=== PATIENT | female | born 1980 | race Hispanic/Latino ===

== ENCOUNTER 2022-04-28 08:06 | Emergency (ER) | payer MEDICAID, SELFPAY ==
--- NOTE | ~2022-04-28 | XR_ITS ---
EXAMINATION: XR abdomen/kub 1V DATE: 04/28/2022 08:41 INDICATION: Abdominal pain TECHNIQUE: A supine view of the abdomen was obtained. COMPARISON: None. FINDINGS: Small amount of stool scattered throughout the colon primarily in the cecum. No dilated loops of gas- filled bowel to suggest obstruction. A few small round likely phleboliths in the pelvis and centered likely atherosclerotic calcification in the left hemipelvis. Bones are unremarkable. IMPRESSION: 1. Normal bowel gas pattern. Reviewed, dictated and finalized at location A.
--- NOTE | 2022-04-28 08:16 | ED.ABDPAIN ---
HPI - Abdominal Pain General Chief Complaint: Abdominal Pain Stated Complaint: Abdominal Pain Time Seen by Provider: 04/28/22 08:20 History of Present Illness HPI narrative: Sultana Frias is a 41 yo female with PMH of HTN who comes to [facility] with complaints of abdominal pain that been going on for a number of days, yesterday evening it was 9 out of 10 today it is 3 out of 10 but still present. She describes the pain as being in her epigastric area that radiates to the back, she states that she has not been having regular bowel movements because she is holding when she is feeding baby. Her preliminary UA that was done is totally negative. When asked if she is eating she said now but- no nausea vomiting or diarrhea; denies vaginal discharge Related Data Allergies Allergy/AdvReac Type Severity Reaction Status Date / Time amoxicillin Allergy Intermediate Other Verified 04/28/22 10:23 clavulanic acid Allergy Intermediate Other Verified 04/28/22 10:23 pseudoephedrine Allergy Mild HIVES Verified 04/28/22 10:23 Fish Containing Products Allergy Swelling Verified 04/28/22 10:23 of Lip/Tongue/Throat Review of Systems Review of Systems: CONSTITUTIONAL: Denies fever, chills, sweats. EYES: Denies visual changes, redness, discharge. ENT: Denies rhinorrhea, congestion, sore throat, otalgia. CARDIOVASCULAR: Denies chest pain, palpitations, edema. RESPIRATORY: Denies dyspnea, wheezing, cough GASTROINTESTINAL: Has abdominal pain, nausea, vomiting, diarrhea. GENITOURINARY: Denies dysuria, hematuria, abnormal discharge SKIN: Denies rash or itching. NEUROLOGIC: Denies numbness, or focal weakness. PSYCHIATRIC: Denies anxiety or depression. PMFSH Past Medical History Medical History HTN (hypertension) Vaginal delivery Social History Social History Smoking status: Never smoker Alcohol intake: never Comments At time of signature, I agree with nursing past medical, surgical, social and family history. There is no relevant family history pertinent to the presenting complaint. Exam Narrative: GENERAL: This is a well-nourished, well-developed patient, in mild distress. HEAD: normocephalic, atraumatic. EYES: Sclera clear/white. Vision is grossly intact. EARS: External ears normal, Hearing grossly intact. NOSE: External nose normal without nasal discharge, nares without redness, no rhinorrhea. THROAT: Mucous membranes moist, NECK: Neck supple, non-tender CARDIOVASCULAR: Regular rate and rhythm without murmurs, gallops, or rubs. RESPIRATORY: Clear to auscultation. Breath sounds equal bilaterally. No wheezes, rales, or rhonchi. GASTROINTESTINAL: Abdomen soft, tender epigastric, reports radiation to back with pressure SKIN: warm, intact with no suspicious lesions or rash, good texture and turgor. NEURO: awake, alert, and oriented to person, place and time. There were no obvious focal neurologic abnormalities. Steady gait EXTREMITIES: Normal range of motion. BACK: Nontender without deformity Course Course Emergency Course: Patient comes to express care with abdominal pain has been going on for few days but last night intensified and 910 today is 3 out of 10 UA is negative for uti, 2+ bili KUB shows normal gas pattern Patient referred on to ER for further work-up Level of Care: Express Care Visit Vital Signs Vital signs: Vital Signs Temperature 98.1 F 04/28/22 08:17 Pulse Rate 69 04/28/22 08:17 Respiratory Rate 16 04/28/22 08:17 Blood Pressure 166/106 H 04/28/22 08:17 Pulse Oximetry 100 04/28/22 08:17 Oxygen Delivery Room Air 04/28/22 08:17 Temperature 98.1 F 04/28/22 08:17 Pulse Rate 69 04/28/22 08:17 Respiratory Rate 16 04/28/22 08:17 Blood Pressure 166/106 H 04/28/22 08:17 Pulse Oximetry 100 04/28/22 08:17 Oxygen Delivery Room Air 04/28/22 08:17 MDM -
[2022-04-28 08:17] VITALS: BP 166/106; PULSE 69; RESP 16; TEMP 36.7; O2SAT 100
== END 2022-04-28 09:28 | disposition short-term general hospital (02) ==
PROVIDERS: Emergency Provider Nurse Practitioner
DX: R10.9 Unspecified abdominal pain (principal); I10 Essential (primary) hypertension
CPT/HCPCS: 74018; 81003; 99213; G0463

== ENCOUNTER 2022-04-28 09:51 | Observation (INO) | payer MEDICAID, SELFPAY ==
--- NOTE | ~2022-04-28 | US_ITS ---
EXAMINATION: US abdomen limited DATE: 04/28/2022 10:36 INDICATION: Abdominal pain TECHNIQUE: Multiple grayscale and Doppler ultrasound images of the abdomen were obtained. COMPARISON: None FINDINGS: The pancreatic head and body are normal in appearance. The pancreatic tail is not visualized. Liver has normal echogenicity and contour, with a smooth surface. No liver lesion identified. No intrahepat ic biliary duct dilation suspected. Portal venous flow was seen in the hepatopetal, normal direction and has normal Doppler waveform. Wall likely shadow complex with numerous shadowing gallstones fillin g the otherwise decompressed gallbladder. Common bile duct measures 4 mm maximal diameter which is no rmal. Sonographic Osborne sign was reported as negative by the alligator trapper.Visual is proximal inferior vena cava is normal. Recess portion of the right kidney demonstrates normal echogenicity and contour with no hydronephrosis. IMPRESSION: 1. Cholelithiasis. Reviewed, dictated and finalized at location A. IMPRESSION: 1. Cholelithiasis.
--- NOTE | ~2022-04-28 | CT_ITS ---
EXAMINATION: CT abdomen pelvis w con DATE: 04/28/2022 11:11 INDICATION: Right upper quadrant umbilical abdominal pain with chills TECHNIQUE: Computed tomography (CT) of the abdomen and pelvis was performed with 100 mL Omnipaque-350 intravenous contrast. Automated exposure control and iterative reconstruction technique were employe d. The dose-length product was 834.80 mGy-cm. COMPARISON: None FINDINGS: Lung bases are clear. Heart size is normal. Small sliding-type hiatal hernia. There is wall thickenin g of the gallbladder which is decompressed and without pericholecystic inflammatory stranding to sugg est acute cholecystitis. Liver, spleen, pancreas, bilateral adrenal glands and kidneys are normal. No intra or extrahepatic biliary ductal dilation. Bowels including the appendix are normal. Decompresse d bladder, anteverted uterus and bilateral adnexa are unremarkable. Trace amount of likely physiologi c free fluid in the cul-de-sac. No abscess or free intraperitoneal gas. No pathologically enlarged ab dominal or pelvic lymphadenopathy. Tiny fat-containing umbilical hernia. Bones are unremarkable. IMPRESSION: 1. Wall thickening of the decompressed gallbladder which is filled with stones on prior ultrasound hooper ggests possible chronic cholecystitis. No dilation the gallbladder, pericholecystic infiltrate strand ing or sonographic Osborne's sign on prior ultrasound to suggest acute cholecystitis. Reviewed, dictated and finalized at location A. IMPRESSION: 1. Wall thickening of the decompressed gallbladder which is filled with stones on prior ultrasound suggests possible chronic cholecystitis. No dilation the ga llbladder, pericholecystic infiltrate stranding or sonographic Osborne's sign on prior ultrasound to suggest acute cholecystitis.
--- NOTE | ~2022-04-28 | MR_ITS ---
EXAMINATION: MR MRCP wo/w con/w 3D wo ind DATE: 04/29/2022 10:09 INDICATION: Pancreatitis. TECHNIQUE: Magnetic resonance imaging (MRI) of the abdomen was performed without and with 20 mL Multi Briseida intravenous contrast. Sequences included coronal T2-weighted FS FSE, coronal T2-weighted FSE, a xial T1-weighted LAVA, coronal FS FIESTA, axial dual-echo T1-weighted SPGR, coronal lava-FLEX, sagitt al T2-weighted FSE, axial T2-weighted FSE, and axial DWI. Thick-slab T2-weighted FSE images were obta ined for magnetic resonance cholangiopancreatography (MRCP). Maximum intensity projection 3-D reconst ructions of the volumetric data were created by the technologist. Postcontrast sequences included cor onal LAVA-flex and time course of axial T1-weighted LAVA. COMPARISON: CT abdomen and pelvis 04/28/2022 FINDINGS: ABDOMEN MRI: There is diffuse hepatic steatosis. There are gallstones in the gallbladder, which is no rmal in size. Gallbladder wall thickening is noted. The spleen is normal. There is fat stranding arou nd the pancreas, consistent with acute interstitial pancreatitis. There is a 6 mm cystic lesion in th e tail of the pancreas, likely benign. The adrenal glands and kidneys are normal. There are no pathol ogically enlarged lymph nodes. There is no free intraperitoneal fluid. ABDOMEN MRCP: The common duct is normal and measures 2 mm. No choledocholithiasis. IMPRESSION: 1. Acute interstitial pancreatitis. 2. Normal common duct. No choledocholithiasis. 3. Cholelithiasis. Gallbladder wall thickening may be secondary to interstitial edema, chronic liver disease, or chronic cholecystitis. 4. Diffuse hepatic steatosis. Reviewed, dictated and finalized at location A.
--- NOTE | 2022-04-28 10:12 | ED.ABDPAIN ---
HPI - Abdominal Pain General Chief Complaint: Abdominal Pain Stated Complaint: abd pain Time Seen by Provider: 04/28/22 09:54 Source: RN notes reviewed History of Present Illness HPI narrative: Patient presents emergency department from urgent care for abdominal pain. Patient states pain began last night. The pain is located in the epigastric and right upper quadrant does not radiate described as sharp and stabbing. Associate with nausea. The patient denies any fevers or chills chest pain shortness of breath vomiting diarrhea or any other symptoms. States she took Tylenol this morning with minimal relief patient gone to the urgent care was referred to the ER for further evaluation Related Data Allergies Allergy/AdvReac Type Severity Reaction Status Date / Time amoxicillin Allergy Intermediate Other Verified 04/28/22 10:23 clavulanic acid Allergy Intermediate Other Verified 04/28/22 10:23 pseudoephedrine Allergy Mild HIVES Verified 04/28/22 10:23 Fish Containing Products Allergy Swelling Verified 04/28/22 10:23 of Lip/Tongue/Throat Review of Systems Review of Systems: Gen.: Denies fevers or chills ENT: Denies congestion Respiratory: Denies shortness of breath or cough CV: Denies chest pain or palpitations GI: See HPI denies burning, urgency, frequency or hematuria Musculoskeletal: Denies back pain or muscle pain Neuro: Denies numbness, tingling, weakness or focal weakness Skin: Denies rash Except as documented, all other systems reviewed and negative [facility] Past Medical History Medical History HTN (hypertension) Vaginal delivery Social History Social History Smoking status: Never smoker Alcohol intake: never Exam Narrative: APPEARANCE: No acute distress, nontoxic, resting in bed HEENT: Normocephalic, atraumatic, OMM RESPIRATORY: No respiratory distress, clear to auscultation bilaterally with no rhonchi wheezing or rales CARDIOVASCULAR: RRR s murmur ABDOMINAL: Soft nondistended tender palpation epigastric and right upper quadrant no tenderness left upper quadrant, left lower quadrant and right lower quadrant no rebound or guarding MUSCULOSKELETAl: Moves all extremities. No clubbing, cyanosis or edema. NEURO: Awake and alert. Following commands, speech normal, no focal deficits SKIN:: Warm, dry. Normal Color PSYCHIATRIC: Normal affect/mood Course Course Emergency Course: Discussed with Dr. Marcus presentation work-up agrees with consult recommends consult with GI recommends patient start on antibiotics Discussed Dr Kearney presentation work-up agrees with consult Discussed Dr. Herndon agrees with admission Discussed with patient and family results of workup and diagnosis. Discussed need for admission. Patient and family understand and agree to current treatment plan Vital Signs Vital signs: Vital Signs Temperature 98.1 F 04/28/22 10:18 Pulse Rate 67 04/28/22 10:18 Respiratory Rate 18 04/28/22 10:18 Blood Pressure 162/101 H 04/28/22 10:18 Pulse Oximetry 99 04/28/22 10:18 Temperature 98.1 F 04/28/22 10:18 Pulse Rate 62 04/28/22 11:40 Respiratory Rate 18 04/28/22 11:40 Blood Pressure 146/92 H 04/28/22 11:40 Pulse Oximetry 99 04/28/22 11:40 MDM - Abdominal Pain Lab Data Result diagrams: 04/28/22 10:16 04/28/22 10:16 Labs: Lab Results 04/28/22 04/28/22 04/28/22 Range/Units 10:16 10:16 10:41 WBC 7.4 (4.5-10.0) K/mm3 RBC 5.87 H (4.2-5.4) M/mm3 Hgb 13.9 (12.0-15.0) g/dL Hct 44.0 (37.0-47.0) % MCV 75.0 L (80-100) fl MCH 23.7 L (26-34) pg MCHC 31.6 L (32-36) g/dl RDW 16.4 H (11.5-14.5) % Plt Count 295 (150-375) k/mm3 MPV 10.3 (7.4-10.4) fl Immature Gran % (Auto) 0.4 (0-0.5) % Neut % (Auto) 64.0 (45.5-73.1) % Lymph % (Auto) 25.9 (18.3-44.2)
[2022-04-28 10:18] VITALS: BP 162/101; PULSE 67; RESP 18; TEMP 36.7; O2SAT 99
[2022-04-28 10:21] LABS: Basophils Percent Auto 0.3 % (0.2-1.2); Eosinophils Percent Auto 0.5 % (0-4.4); Hemoglobin 13.9 g/dL (12.0-15.0); Immature Granulocyte Absolute 0.03 K/mm3 (0.00-0.031); Immature Granulocyte Percent A 0.4 % (0-0.5); Lymphocytes Absolute Auto 1.92 K/mm3 (0.9-3.2); Lymphocytes Percent Auto 25.9 % (18.3-44.2); Mean Corpuscular HGB Conc 31.6 g/dl (32-36); Mean Corpuscular Hemoglobin 23.7 pg (26-34); Mean Platelet Volume 10.3 fl (7.4-10.4); Monocytes Absolute Auto 0.7 K/mm3 (0.1-0.6); Monocytes Percent Auto 8.9 % (2.6-8.5); Neutrophils Absolute Auto 4.7 K/mm3 (1.3-6.7); Platelet Count Result 295 k/mm3 (150-375); Red Blood Count 5.87 M/mm3 (4.2-5.4); Red Cell Distribution Width 16.4 % (11.5-14.5); White Blood Count 7.4 K/mm3 (4.5-10.0)
[2022-04-28 10:33] LABS: Albumin Level 4.7 g/dL (3.5-5.1); Alkaline Phosphatase 169 U/L (38-126); Anion Gap 11 mmol/L (8-16); Blood Urea Nitrogen 9 mg/dL (7-17); Carbon Dioxide 27 mmol/L (22-30); Chloride 101 mmol/L (98-107); Estimated CRCL calculation 111 ml/min; Estimated Glomerular Filt Rate > 60; Glucose 105 mg/dL (65-110); Lipase 1749 U/L (23-300); Potassium 3.5 mmol/L (3.4-5.0); Sodium 139 mmol/L (137-145)
[2022-04-28] MEDS: KETOROLAC 30 MG/ML VIAL (*BKC) IV PUSH (10:38)
[2022-04-28] MEDS: SODIUM CHLORIDE 0.9% IV 1,000 ML 999 ML IV CONT ×2 (10:38→10:52)
[2022-04-28] MEDS: ONDANSETRON INJ 4 MG/2 ML VIAL IV PUSH (10:38)
[2022-04-28 10:46] LABS: Alanine Aminotransferase 1115 U/L (6-35); Aspartate Amino Transferase 1185 U/L (14-36)
[2022-04-28 10:48] LABS: Add Urine Microscopic? YES; Appearance Urine Clear (Clear); Bilirubin Urine 3+ (Negative); Blood Urine Negative (Negative); Color Urine Orange (Yellow); Glucose Urine UA Negative (Negative); Ketones Urine Negative (Negative); Leukocyte Esterase Ur Negative LEU/UL (Negative); Nitrate Urine Negative (Negative); Protein Urine 1+ mg/dL (Negative); Specific Grav Ur 1.025 (1.001-1.035); pH Urine 5.5 (5.0-9.0)
[2022-04-28 11:26] LABS: Bacteria Urine Trace /hpf; Mucus Urine Moderate /lpf; RBC Urine 0-2 /hpf (0-2); Squamous Epithelial Cell Urine Many /hpf (Few)
[2022-04-28 11:37] LABS: SARS-CoV-2 RNA PCR Negative
[2022-04-28 11:40] VITALS: BP 146/92; PULSE 62; RESP 18; O2SAT 99
[2022-04-28] MEDS: metroNIDAZOLE 500 MG/ISO 100ML 500 MG/100 ML BAG 100 MG IVPB ×3 (11:49→23:36)
[2022-04-28] MEDS: SODIUM CHLORIDE 0.9% IV 1,000 ML 150 ML IV CONT ×2 (12:25→20:20)
--- NOTE | 2022-04-28 12:44 | PC.NURSE ---
This patient, Sultana Power, was admitted to 2 Medical Room 244-. Patient/family oriented to hospital policies and general routines including ID bracelet, bed and alarms, visiting hours, pain management, procedures, bathroom and other care routines, personal items, smoking policy, room service/diet, and visiting hours. Information on how to activate the Rapid Response Team has been discussed. Patient/Family are encouraged to report perceived risks to care and to ask questions if they do not understand what they are told or what they should do.
[2022-04-28 12:45] VITALS: BMI 33.6
[2022-04-28 12:50] VITALS: BP 176/90; PULSE 63; RESP 16; TEMP 36.6; O2SAT 99
--- NOTE | 2022-04-28 13:50 | PM.IMHP ---
H&P: HPI History of Present Illness Date/Time: 04/28/22 13:50 Chief Complaint: Abdominal pain. Narrative: This is a very pleasant 41-year-old female who presented to the emergency department from urgent care via private vehicle for evaluation of abdominal pain. She is 2 months from her 2nd child and that was complicated by gestational diabetes and preeclampsia. She has been able to come off both of her insulin and antihypertensives, however and she has been doing well. Yesterday afternoon she had some coffee and a ham sandwich and a couple of hours thereafter she developed the sudden onset of severe tight and ?labor like? pain in the epigastrium and right upper quadrant radiating around the side and through to the back. She broke out into a cold sweat and was also very nauseated. She took Pepcid and Tylenol and after several hours the pain had become tolerable enough that she was able to sleep overnight. However she has continued to have constant, mild right upper quadrant discomfort worse with movement, lying supine, laughing, etc.. In the ER she was afebrile and her vital signs have been stable though blood pressures have been elevated. Pertinent labs include a white blood cell count of 7.4, total bilirubin 3.0, AST 1185, ALT 1115, alkaline phosphatase 169, and a lipase of 1749. Abdominal ultrasound showed cholelithiasis and a subsequent CT of the abdomen and pelvis showed cholelithiasis and wall thickening of the gallbladder which may suggest chronic cholecystitis but no evidence of acute cholecystitis. She is being admitted in this setting for further treatment and evaluation. Currently she continues to have a mild aching discomfort in the epigastrium and right upper quadrant though it is tolerable. Nausea has pass and fact she is hungry. She has not had fever, chills, or sweats. He has never had similar symptoms in the past. No history of hepatitis or pancreatitis. She also denies risk factors for such. Review of Systems Review of Systems: Twelve systems were reviewed. No fever. She did have cold sweats at the outside of her abdominal pain as detailed above. No recent cold or flu symptoms. No sick contacts. No chest pain or shortness of breath. No melena or hematochezia. No dysuria. Except as documented, all other systems were reviewed and are negative. [facility] Past Medical History Medical History (Updated 04/28/22 @ 19:10 by Liliam Lopez PA-C) Gestational diabetes Preeclampsia induced hypertension Surgical History Surgical History (Updated 04/28/22 @ 19:05 by Liliam Lopez PA-C) History of tonsillectomy Family History Family History (Updated 04/28/22 @ 19:05 by Liliam Lopez PA-C) Other Family history non-contributory Social History Social History (Updated 04/28/22 @ 19:06 by Liliam Lopez PA-C) Social History: Surrogate medical decision maker: Tamia Power, mother. Code status: Full code. Smoking status: Former smoker Additional smoking assessment comments: Smoked briefly as a younger woman. Alcohol intake: former Substance use: never Additional living arrangements comments: The patient lives with her 20-year-old daughter and 2-month-old son. Spiritual care concerns: No (Caodaism) Meds Home Medications and Allergies Allergies Allergy/AdvReac Type Severity Reaction Status Date / Time amoxicillin Allergy Intermediate Other Verified 04/28/22 10:23 clavulanic acid Allergy Intermediate Other Verified 04/28/22 10:23 pseudoephedrine Allergy Mild HIVES Verified 04/28/22 10:23 Fish Containing Products Allergy Swelling Verified 04/28/22 10:23 of Lip/Tongue/Throat Vital Signs Vital Signs - 24 hr 04/28/22 10:18 04/28/22 11:40 04/28/22 12:50 Temperature 98.1 F 97.9 F Pulse Rate 67 62 63 Respiratory Rate 18 18 16 Blood Pressure 162/101 H 146/92 H 176/90 H Pulse Oximetry 99 99 99 Oxygen Delivery 04/28/22 12:43 Temperat
[2022-04-28 14:00] VITALS: BP 140/86; PULSE 59; RESP 18; TEMP 36.8; O2SAT 100
[2022-04-28 19:43] VITALS: BP 140/84; PULSE 63; RESP 18; TEMP 36.2; O2SAT 97
[2022-04-29 02:06] VITALS: PULSE 75; RESP 16; O2SAT 95
[2022-04-29] MEDS: SODIUM CHLORIDE 0.9% IV 1,000 ML 150 ML IV CONT ×2 (03:40→16:55)
[2022-04-29 03:41] VITALS: BP 137/70; PULSE 72; RESP 18; TEMP 36.1; O2SAT 99
[2022-04-29 05:11] LABS: Basophils Percent Auto 0.4 % (0.2-1.2); Eosinophils Absolute Auto 0.1 K/mm3 (0-0.3); Eosinophils Percent Auto 1.3 % (0-4.4); Hematocrit 39.4 % (37.0-47.0); Hemoglobin 12.8 g/dL (12.0-15.0); Immature Granulocyte Absolute 0.02 K/mm3 (0.00-0.031); Immature Granulocyte Percent A 0.4 % (0-0.5); Lymphocytes Absolute Auto 1.44 K/mm3 (0.9-3.2); Lymphocytes Percent Auto 26.6 % (18.3-44.2); Mean Corpuscular HGB Conc 32.5 g/dl (32-36); Mean Corpuscular Hemoglobin 24.1 pg (26-34); Mean Corpuscular Volume 74.1 fl (80-100); Mean Platelet Volume 10.1 fl (7.4-10.4); Monocytes Absolute Auto 0.5 K/mm3 (0.1-0.6); Monocytes Percent Auto 8.3 % (2.6-8.5); Neutrophils Absolute Auto 3.4 K/mm3 (1.3-6.7); Platelet Count Result 252 k/mm3 (150-375); Red Blood Count 5.32 M/mm3 (4.2-5.4); Red Cell Distribution Width 16.1 % (11.5-14.5); White Blood Count 5.4 K/mm3 (4.5-10.0)
[2022-04-29] MEDS: metroNIDAZOLE 500 MG/ISO 100ML 500 MG/100 ML BAG 100 MG IVPB ×3 (05:23→19:19)
[2022-04-29 05:35] LABS: Albumin Level 4.1 g/dL (3.5-5.1); Alkaline Phosphatase 169 U/L (38-126); Anion Gap 14 mmol/L (8-16); Aspartate Amino Transferase 563 U/L (14-36); Bilirubin,Total 3.9 mg/dL (0.2-1.3); Blood Urea Nitrogen 4 mg/dL (7-17); CRP 0.8 mg/dL (<1.0); Calcium 8.1 mg/dL (8.4-10.2); Carbon Dioxide 26 mmol/L (22-30); Chloride 101 mmol/L (98-107); Estimated CRCL calculation 128 ml/min; Estimated Glomerular Filt Rate > 60; Glucose 97 mg/dL (65-110); Lipase 88 U/L (23-300); Potassium 3.7 mmol/L (3.4-5.0); Sodium 141 mmol/L (137-145); Triglycerides 102 mg/dL (<150)
[2022-04-29 05:37] LABS: Alanine Aminotransferase 901 U/L (6-35)
[2022-04-29 06:21] LABS: Hepatitis B Surface Antigen Negative (Negative)
[2022-04-29 06:27] LABS: HAV RESULT Negative (Negative); Hepatitis B Core IgM Result Negative (Negative)
[2022-04-29 06:39] LABS: Hepatitis C Virus Antibody Negative (Negative)
--- NOTE | 2022-04-29 07:25 | WPDGICN ---
Assessment and Plan Assessment and plan (1) Cholelithiasis and cholecystitis without obstruction: Code(s): K80.10 - Calculus of gallbladder with chronic cholecystitis without obstruction Status: Acute Assessment and Plan: Patient with gallstones. Appear to be the etiology for patient's brief episode of pancreatitis. Surgical consult will be obtained. Appears as though she may have passed common duct stone. MRCP will be performed to ensure that the common duct is clear prior to surgical therapy. (2) Gallstone pancreatitis: Code(s): K85.10 - Biliary acute pancreatitis without necrosis or infection Status: Acute Assessment and Plan: Patient with very brief episode of pancreatitis. Bilirubin remains somewhat elevated today. Lipase has returned to normal. Plan is for surgical consultation an MRCP will be obtained initially to hopefully confirm clearance of the common bile duct. GI Consult Note Consult date/time: 04/29/22 07:25 Reason for consult: Gallstone pancreatitis. HPI: Sultana Power is a 41 year old female Who has just several months after . Patient in usual state of health till Saturday evening when she began to get rather intense mid epigastric pain that radiated straight through to her back. This pain persisted but somewhat less so on Saturday prompting her to go to urgent care. Patient was found to have elevated lipase consistent with pancreatitis in admitted to [facility]. Scanning exam is reveals the patient has gallstones. Elevated lipase consistent with pancreatitis. CT scan revealed no obvious inflammation in the pancreas however.. After overnight observation patient has had prompt improvement. She no longer has abdominal pain. Her lipase has returned to normal. Bilirubin is not yet decline. Review of Systems Review of Systems: Review of systems noncontributory. [facility] Past Medical History Medical History (Updated 04/29/22 @ 00:01 by Zak New) Gestational diabetes Preeclampsia induced hypertension Surgical History Surgical History (Updated 04/28/22 @ 19:05 by Liliam Lopez PA-C) History of tonsillectomy Family History Family History (Updated 04/28/22 @ 19:05 by Liliam Lopez PA-C) Other Family history non-contributory Social History Social History (Updated 04/28/22 @ 19:06 by Liliam Lopez PA-C) Social History: Surrogate medical decision maker: Tamia Power, mother. Code status: Full code. Smoking status: Former smoker Additional smoking assessment comments: Smoked briefly as a younger woman. Alcohol intake: former Substance use: never Additional living arrangements comments: The patient lives with her 20-year-old daughter and 2-month-old son. Spiritual care concerns: No (Orthodoxy) Meds Home Medications and Allergies Home Medications Medication Instructions Recorded Confirmed Type No Home Medications 04/28/22 04/28/22 History Allergies Allergy/AdvReac Type Severity Reaction Status Date / Time amoxicillin Allergy Intermediate Other Verified 04/28/22 10:23 clavulanic acid Allergy Intermediate Other Verified 04/28/22 10:23 pseudoephedrine Allergy Mild HIVES Verified 04/28/22 10:23 Fish Containing Products Allergy Swelling Verified 04/28/22 10:23 of Lip/Tongue/Throat Vital Signs Vital Signs - 24 hr 04/28/22 10:18 04/28/22 11:40 04/28/22 12:50 Temperature 98.1 F 97.9 F Pulse Rate 67 62 63 Respiratory Rate 18 18 16 Blood Pressure 162/101 H 146/92 H 176/90 H Pulse Oximetry 99 99 99 Oxygen Delivery 04/28/22 12:43 04/28/22 14:00 04/28/22 19:43 Temperature 98.2 F 97.2 F L Pulse Rate 59 L 63 Respiratory Rate 18 18 Blood Pressure 140/86 140/84 Pulse Oximetry 100 97 Oxygen Delivery Room Air 04/28/22 20:22 04/29/22 02:06 04/29/22 03:41 Temperature 97 F L Pulse Rate 75 72 Respiratory Rate 16 18 Blood
[2022-04-29 07:56] LABS: Bilirubin Direct 1.8 mg/dL (0-0.3)
--- NOTE | 2022-04-29 10:29 | PM.CNGS ---
Assessment and Plan Assessment and plan (1) Gallstone pancreatitis: Code(s): K85.10 - Biliary acute pancreatitis without necrosis or infection Status: Acute Assessment and Plan: exam much improved today, enzymes normalizing, will get MRCP although has likely already passed stone (2) Cholelithiasis and cholecystitis without obstruction: Code(s): K80.10 - Calculus of gallbladder with chronic cholecystitis without obstruction Status: Acute Assessment and Plan: will need interval cholecystectomy, await MRCP, cont Zosyn History of Present Illness Consult details Consult date: 04/29/22 Reason for consult: abdominal pain Requesting physician: Sherin Herndon DO Narrative: The patient is a 41-year-old female presenting to the emergency department complaining of severe epigastric, right upper quadrant abdominal pain. The patient reports the pain started yesterday after eating a ham sandwich and having a cup of coffee. The patient reports that the pain is sharp and constant located mainly in the epigastrium and right upper quadrant. The patient also reports associated nausea, bloating. Patient reports milder symptoms in the past. Workup in the emergency department, including imaging, is significant for biliary pancreatitis, chronic cholecystitis with cholelithiasis. Review of Systems Constitutional: Constitutional: Reports anorexia, Denies chills, Reports fatigue, Denies fever(s), Reports lethargy, Reports poor appetite, Denies weakness, Denies weight gain and Denies weight loss ENT: Reports system reviewed and no additional complaints, except as documented Cardiovascular: Cardiovascular: Reports no additional cardiovascular complaints Respiratory: Respiratory: Reports no additional respiratory complaints Gastrointestinal: Gastrointestinal: Reports as per HPI, Reports abdominal pain, Reports bloating, Reports GI cramping, Reports early satiety, Reports heartburn, Reports nausea and Denies vomiting Genitourinary: Genitourinary: Reports no additional female genitourinary complaints Musculoskeletal: Musculoskeletal: Reports no additional musculoskeletal complaints Integumentary/Breasts: Skin/Breast: Reports system reviewed and no additional complaints, except as docu Neurologic: Reports system reviewed and no additional complaints, except as documented Psychiatric: Psychiatric: Reports no additional psychiatric complaints Endocrine: Endocrine: Reports no additional endocrine complaints Hematologic/Lymphatic: Hematologic/Lymphatic: Reports no additional hematologic/lymphatic complaints Allergic/Immunologic: Allergic/Immunologic: Reports no additional allergic/immunologic complaints [facility] Past Medical History Medical History Gestational diabetes Preeclampsia induced hypertension Surgical History Surgical History History of tonsillectomy Family History Family History Other Family history non-contributory Social History Social History Social History: Surrogate medical decision maker: Tamia Power, mother. Code status: Full code. Smoking status: Former smoker Additional smoking assessment comments: Smoked briefly as a younger woman. Alcohol intake: former Substance use: never Additional living arrangements comments: The patient lives with her 20-year-old daughter and 2-month-old son. Spiritual care concerns: No (Scientology) Meds Home Medications and Allergies Home Medications Medication Instructions Recorded Confirmed Type No Home Medications 04/28/22 04/28/22 History Allergies Allergy/AdvReac Type Severity Reaction Status Date / Time amoxicillin Allergy Intermediate Other Verified 04/28/22 10:23 clavulanic acid Allergy Intermed
[2022-04-29 14:32] VITALS: BP 151/115; PULSE 76; RESP 16; TEMP 36.4; O2SAT 99
--- NOTE | 2022-04-29 14:58 | PM.IMPN ---
Progress Note: A&P Assessment and Plan (1) Cholelithiasis and cholecystitis without obstruction: Code(s): K80.10 - Calculus of gallbladder with chronic cholecystitis without obstruction Status: Acute Assessment and Plan: CT scan with thickening of the decompressed gallbladder filled with stones suggestive of possible chronic cholecystitis. GI and General surgery consulted AST 1185, ALT 1115, T bili 3.9, and alk-phos 169 on admission; LFTs trending down to knee although still elevated patient was started on IV Levaquin and IV Flagyl on 04/28/2022, continue antibiotics MRCP done on 04/29 22 showed acute interstitial pancreatitis, normal common bile duct without choledocholithiasis, cholelithiasis with gallbladder wall thickening and diffuse hepatic steatosis continue IV fluids, and diet per General surgery (2) Transaminitis: Code(s): R74.01 - Elevation of levels of liver transaminase levels Status: Acute Assessment and Plan: as described above secondary to presumed choledocholithiasis, patient likely passed stone. (3) Elevated blood pressure reading: Code(s): R03.0 - Elevated blood-pressure reading, without diagnosis of hypertension Status: Acute Assessment and Plan: BP fluctuant 176/90, 137/70, 151/115. Patient has no longer on antihypertensives. Continue to monitor. Will add p.r.n. hydralazine IV for SBP greater than 160 or diastolic greater than 100. Patient does have blood pressure cuff at home which can be monitored. She will likely need resumption of antihypertensives as blood pressure has been elevated recently without complaints of acute pain. (4) Gallstone pancreatitis: Code(s): K85.10 - Biliary acute pancreatitis without necrosis or infection Status: Acute Assessment and Plan: lipase 1749 on admission likely secondary to cholelithiasis. Repeat lipase 88 abdominal pain has improved today. Advance diet as per surgery. Continue IV fluids and pain control. Plan Code status: Full code Disposition: Home diet: Low-fat Time Spent With Patient Time with patient: 15 - 25 minutes Subjective Date/time seen: 04/29/22 14:58 Patient is a 41-year-old female who presented to the emergency department from urgent care for evaluation of abdominal pain. She is 2 months from her 2nd child with known complications of gestational diabetes and preeclampsia. CT of the abdomen and pelvis showed cholelithiasis and wall thickening of the gallbladder which may suggest chronic cholecystitis. Patient is sitting up in the chair. She reports feeling slightly dizzy. She had nausea without emesis prior to eating and after her MRCP. She ate a low fat diet and denies pain or nausea now. She reports being on lisinopril and HCTZ for hypertension before, but these were stopped due to low blood pressure. She denies BEE, vision changes, or chest pain. Review of Systems Review of Systems: All systems reviewed & are unremarkable except as noted in HPI and below Exam Narrative: General:?No distress. HEENT:?Pupils equal and round. Sclerae anicteric.?Mucous membranes dry. Neck:??No JVD. Respiratory:?Lungs sounds clear to auscultation bilaterally. RR unlabored. No intercostal muscle use. Cardiovascular:??Regular rate and rhythm with normal S1-S2. No murmurs, gallops or rubs. Gastrointestinal:??Abdomen soft, round, nontender to palpation. Positive bowel sounds. No suprapubic tenderness. Skin:??Warm and dry. No rashes or lesion. Normal for ethnicity. Extremities:??No edema. Radial and pedal pulses palpable and equal. Moves all 4 extremities with full strength. Neurological:??Alert. Oriented x4. No focal findings. Psychiatric:??Pleasant and appropriate mood and affect. cooperative with examination. Objective Data Vital Signs Vital Signs: Vital Signs - 24 hr 04/28/22 19:43 04/28/22 20:22 04/29/22 02:06 Temperature 97.2
[2022-04-29 19:30] VITALS: BP 140/74; PULSE 66; RESP 16; TEMP 36.6; O2SAT 99
[2022-04-30] MEDS: SODIUM CHLORIDE 0.9% IV 1,000 ML 150 ML IV CONT ×2 (00:24→07:23)
[2022-04-30] MEDS: metroNIDAZOLE 500 MG/ISO 100ML 500 MG/100 ML BAG 100 MG IVPB ×3 (01:03→13:40)
[2022-04-30 03:38] VITALS: BP 144/90; PULSE 64; RESP 17; TEMP 36.6; O2SAT 97
[2022-04-30 05:02] LABS: Basophils Percent Auto 0.4 % (0.2-1.2); Eosinophils Absolute Auto 0.1 K/mm3 (0-0.3); Eosinophils Percent Auto 1.2 % (0-4.4); Hematocrit 40.5 % (37.0-47.0); Hemoglobin 12.7 g/dL (12.0-15.0); Immature Granulocyte Absolute 0.02 K/mm3 (0.00-0.031); Immature Granulocyte Percent A 0.4 % (0-0.5); Lymphocytes Absolute Auto 1.66 K/mm3 (0.9-3.2); Lymphocytes Percent Auto 34.2 % (18.3-44.2); Mean Corpuscular HGB Conc 31.4 g/dl (32-36); Mean Corpuscular Hemoglobin 23.8 pg (26-34); Mean Corpuscular Volume 75.8 fl (80-100); Mean Platelet Volume 10.1 fl (7.4-10.4); Monocytes Absolute Auto 0.4 K/mm3 (0.1-0.6); Neutrophils Absolute Auto 2.7 K/mm3 (1.3-6.7); Neutrophils Percent Auto 55.8 % (45.5-73.1); Platelet Count Result 264 k/mm3 (150-375); Red Blood Count 5.34 M/mm3 (4.2-5.4); Red Cell Distribution Width 16.7 % (11.5-14.5); White Blood Count 4.9 K/mm3 (4.5-10.0)
[2022-04-30 05:21] LABS: Alanine Aminotransferase 637 U/L (6-35); Alkaline Phosphatase 164 U/L (38-126); Anion Gap 9 mmol/L (8-16); Aspartate Amino Transferase 263 U/L (14-36); Bilirubin,Total 2.1 mg/dL (0.2-1.3); Blood Urea Nitrogen 4 mg/dL (7-17); Calcium 8.8 mg/dL (8.4-10.2); Carbon Dioxide 24 mmol/L (22-30); Chloride 106 mmol/L (98-107); Estimated CRCL calculation 110 ml/min; Estimated Glomerular Filt Rate > 60; Glucose 114 mg/dL (65-110); Potassium 3.6 mmol/L (3.4-5.0); Sodium 139 mmol/L (137-145)
[2022-04-30 07:37] VITALS: RESP 18; O2SAT 97
--- NOTE | 2022-04-30 08:44 | WPDGIPROGNO ---
Progress Note: A&P Assessment and Plan (1) Gallstone pancreatitis: Code(s): K85.10 - Biliary acute pancreatitis without necrosis or infection Status: Acute Assessment and Plan: Patient with resolving gallstone pancreatitis. Lipase normalize very quickly. As did pain. MRCP reveals no evidence of CBD stones. Plan for cholecystectomy under the direction of surgical service. elevated LFTs gradually returning to normal. (2) Cholelithiasis and cholecystitis without obstruction: Code(s): K80.10 - Calculus of gallbladder with chronic cholecystitis without obstruction Status: Acute Subjective Date/time seen: 04/30/22 08:44 Patient alert and comfortable this morning. Tolerated low-fat diet. Denies any significant pain at present. Review of Systems Review of Systems: Review of systems noncontributory. Exam Narrative: Physical exam reveals patient to be alert. Vital signs stable. HEENT exam is unremarkable. Patient anicteric. Lungs are clear. Heart without murmur. Abdomen bowel sounds present soft nontender with no organomegaly. Objective Data Vital Signs Vital Signs: Vital Signs - 24 hr 04/29/22 14:32 04/29/22 19:30 04/30/22 03:38 Temperature 97.5 F L 97.8 F 97.8 F Pulse Rate 76 66 64 Respiratory Rate 16 16 17 Blood Pressure 151/115 H 140/74 144/90 H Pulse Oximetry 99 99 97 Oxygen Delivery 04/30/22 07:37 Temperature Pulse Rate Respiratory Rate 18 Blood Pressure Pulse Oximetry 97 Oxygen Delivery Room Air Intake/Output Intake/Output: Intake & Output 04/27/22 04/28/22 04/29/22 04/30/22 23:59 23:59 23:59 23:59 Intake Total 3350 3230 2340 Output Total 0 Balance 3350 3230 2340 Meds/Results Medications: Active Medications Generic Name Dose Route Start Last Admin Trade Name Freq PRN Reason Stop Dose Admin Sodium Chloride 1,000 mls @ 150 mls/hr 04/28/22 12:00 04/30/22 07:26 Normal Saline Iv IV CONT 0 mls/hr .Q6H40M CONTRERAS Infusion Levofloxacin/Dextrose 750 mg in 150 mls @ 100 mls/hr 04/29/22 12:00 04/29/22 13:58 Levaquin 750 Mg/D5w 150 Ml IVPB Infused NOON CONTRERAS Infusion Metronidazole 500 mg in 100 mls @ 100 mls/hr 04/29/22 20:00 04/30/22 07:26 Flagyl 500 Mg/Iso Soln 100 Ml IVPB 100 mls/hr Q6H CONTRERAS Administration Radiology Results: ITS Impressions Abdomen Ultrasound 04/28/22 11:01 IMPRESSION: 1. Cholelithiasis. Abdomen/Pelvis CT 04/28/22 11:21 IMPRESSION: 1. Wall thickening of the decompressed gallbladder which is filled with stones on prior ultrasound suggests possible chronic cholecystitis. No dilation the gallbladder, pericholecystic infiltrate stranding or sonographic Osborne's sign on prior ultrasound to suggest acute cholecystitis. MRCP 04/29/22 11:11 IMPRESSION: 1. Acute interstitial pancreatitis. 2. Normal common duct. No choledocholithiasis. 3. Cholelithiasis. Gallbladder wall thickening may be secondary to interstitial edema, chronic liver disease, or chronic cholecystitis. 4. Diffuse hepatic steatosis. Labs Labs: Laboratory Results - last 24 hr 04/30/22 04/30/22 04:49 04:49 WBC 4.9 RBC 5.34 Hgb 12.7 Hct 40.5 MCV 75.8 L MCH 23.8 L MCHC 31.4 L RDW 16.7 H Plt Count 264 MPV 10.1 Immature Gran % (Auto) 0.4 Neut % (Auto) 55.8 Lymph % (Auto) 34.2 Gonzales % (Auto) 8.0 Eos % (Auto) 1.2 Baso % (Auto) 0.4 Lymph # (Auto) 1.66 Gonzales # (Auto) 0.4 Eos # (Auto) 0.1 Baso # (Auto) 0.0 Abs Immat Gran (auto) 0.02 Absolute Neuts (auto) 2.7 Absolute Nucleated RBC 0.0 Nucleated RBC % 0.0 Sodium 139 Potassium 3.6 Chloride 106 Carbon Dioxide 24 Anion Gap 9 BUN 4 L Creatinine 0.70 Estim Creat Clear Calc 110 Estimated GFR > 60 Glucose 114 H Calcium 8.8 Total Bilirubin 2.1 H AST 263 H ALT 637 H Alkaline Phosphatase 164 H Total Protein 8.0 Albumin 4.0 Amg Follow-up Billing Inpatien
--- NOTE | 2022-04-30 11:46 | PM.PNGS ---
Progress Note: A&P Assessment and Plan (1) Gallstone pancreatitis: Code(s): K85.10 - Biliary acute pancreatitis without necrosis or infection Status: Acute Assessment and Plan: resolved, cont low fat diet, will need interval cholecystectomy (2) Cholelithiasis and cholecystitis without obstruction: Code(s): K80.10 - Calculus of gallbladder with chronic cholecystitis without obstruction Status: Acute Assessment and Plan: ok to dc home c plans for interval cholecystectomy in the near future, cont low fat diet for now Subjective Subjective Date/Time Seen: 04/30/22 11:46 feels completely normal, yandel low fat diet Review of Systems Review of Systems: All systems reviewed & are unremarkable except as noted in HPI and below Exam Const: General: cooperative, comfortable and no acute distress Resp: Effort & Inspection: normal respiratory effort Auscultation: clear to auscultation bilaterally Cardio: Rate: regular rate Rhythm: regular rhythm GI: Inspection: normal to inspection and non-distended GI Palp: No abdominal tenderness, Yes Soft to palpation, No Tenderness to palpation present (GI), No Guarding due to palpation present (GI) and No Rigid due to palpation Objective Data Vital Signs Vital Signs: Vital Signs - 24 hr 04/29/22 14:32 04/29/22 19:30 04/30/22 03:38 Temperature 36.4 C L 36.6 C 36.6 C Pulse Rate 76 66 64 Respiratory Rate 16 16 17 Blood Pressure 151/115 H 140/74 144/90 H Pulse Oximetry 99 99 97 Oxygen Delivery 04/30/22 07:37 Temperature Pulse Rate Respiratory Rate 18 Blood Pressure Pulse Oximetry 97 Oxygen Delivery Room Air Intake/Output Intake/Output: Intake & Output 04/27/22 04/28/22 04/29/22 04/30/22 23:59 23:59 23:59 23:59 Intake Total 3350 3230 2680 Output Total 0 Balance 3350 3230 2680 Meds/Results Medications: Active Medications Generic Name Dose Route Start Last Admin Trade Name Freq PRN Reason Stop Dose Admin Sodium Chloride 1,000 mls @ 150 mls/hr 04/28/22 12:00 04/30/22 10:33 Normal Saline Iv IV CONT 0 mls/hr .Q6H40M CONTRERAS Infusion Levofloxacin/Dextrose 750 mg in 150 mls @ 100 mls/hr 04/29/22 12:00 04/29/22 13:58 Levaquin 750 Mg/D5w 150 Ml IVPB Infused NOON CONTRERAS Infusion Metronidazole 500 mg in 100 mls @ 100 mls/hr 04/29/22 20:00 04/30/22 08:26 Flagyl 500 Mg/Iso Soln 100 Ml IVPB Infused Q6H CONTRERAS Infusion Radiology Results: ITS Impressions Abdomen Ultrasound 04/28/22 11:01 IMPRESSION: 1. Cholelithiasis. Abdomen/Pelvis CT 04/28/22 11:21 IMPRESSION: 1. Wall thickening of the decompressed gallbladder which is filled with stones on prior ultrasound suggests possible chronic cholecystitis. No dilation the gallbladder, pericholecystic infiltrate stranding or sonographic Osborne's sign on prior ultrasound to suggest acute cholecystitis. MRCP 04/29/22 11:11 IMPRESSION: 1. Acute interstitial pancreatitis. 2. Normal common duct. No choledocholithiasis. 3. Cholelithiasis. Gallbladder wall thickening may be secondary to interstitial edema, chronic liver disease, or chronic cholecystitis. 4. Diffuse hepatic steatosis. Labs Labs: Laboratory Results - last 24 hr 04/30/22 04/30/22 04:49 04:49 WBC 4.9 RBC 5.34 Hgb 12.7 Hct 40.5 MCV 75.8 L MCH 23.8 L MCHC 31.4 L RDW 16.7 H Plt Count 264 MPV 10.1 Immature Gran % (Auto) 0.4 Neut % (Auto) 55.8 Lymph % (Auto) 34.2 Door % (Auto) 8.0 Eos % (Auto) 1.2 Baso % (Auto) 0.4 Lymph # (Auto) 1.66 Door # (Auto) 0.4 Eos # (Auto) 0.1 Baso # (Auto) 0.0 Abs Immat Gran (auto) 0.02 Absolute Neuts (auto) 2.7 Absolute Nucleated RBC 0.0 Nucleated RBC % 0.0 Sodium 139 Potassium 3.6 Chloride 106 Carbon Dioxide 24 Anion Gap 9 BUN 4 L Creatinine 0.70 Estim Creat Clear Calc 110 Estimated GFR > 60 Glucose 114 H Calcium 8.8 Total Bilirubin 2.1 H
--- NOTE | 2022-04-30 12:00 | PM.DS ---
DS: Admitting Diagnosis Discharge Date 09/30/2021 1407 Admitting Diagnosis Gallstone pancreatitis Cholelithiasis and with cholecystitis Transaminitis Elevated blood pressure reading without diagnosis of hypertension DS: Discharge Diagnosis Discharge Diagnosis (1) Gallstone pancreatitis: Code(s): K85.10 - Biliary acute pancreatitis without necrosis or infection Status: Acute Assessment and Plan: lipase 1749 on admission likely secondary to cholelithiasis. Repeat lipase 88 abdominal pain has improved Hospital day 2. Advance diet as per surgery. patient tolerating diet prior to discharge (2) Cholelithiasis and cholecystitis without obstruction: Qualifiers: Cholelithiasis location: gallbladder and bile duct Cholecystitis acuity: acute Qualified Code(s): K80.62 - Calculus of gallbladder and bile duct with acute cholecystitis without obstruction Code(s): K80.10 - Calculus of gallbladder with chronic cholecystitis without obstruction Status: Acute Assessment and Plan: CT scan with thickening of the decompressed gallbladder filled with stones suggestive of possible chronic cholecystitis. GI and General surgery consulted AST 1185, ALT 1115, T bili 3.9, and alk-phos 169 on admission; LFTs trending down to knee although still elevated patient was started on IV Levaquin and IV Flagyl on 04/28/2022, continue antibiotics MRCP done on 04/29 22 showed acute interstitial pancreatitis, normal common bile duct without choledocholithiasis, cholelithiasis with gallbladder wall thickening and diffuse hepatic steatosis Diet was advanced to low-fat diet and patient tolerated a rated it well, LFTs were monitored and were trending down, patient was without further abdominal pain (3) Transaminitis: Code(s): R74.01 - Elevation of levels of liver transaminase levels Status: Acute Assessment and Plan: as described above secondary to presumed choledocholithiasis, patient likely passed stone. improving (4) Elevated blood pressure reading: Code(s): R03.0 - Elevated blood-pressure reading, without diagnosis of hypertension Status: Acute Assessment and Plan: BP fluctuant 176/90, 137/70, 151/115. Patient has no longer on antihypertensives. Continue to monitor. Will add p.r.n. hydralazine IV for SBP greater than 160 or diastolic greater than 100. Patient does have blood pressure cuff at home which can be monitored. She will likely need resumption of antihypertensives as blood pressure has been elevated recently without complaints of acute pain. improved. May have a component of pain. The patient was counseled to check her blood pressure daily and record for PCP follow-up. Number medications initiated this hospital stay. DS: Summary Hospital Course Reason for hospitalization: abdominal pain Hospital Course: patient is a pleasant 41-year-old female with medical history of gestational diabetes and preeclampsia. She is 2 months with her 2nd child presented to the emergency department for evaluation of acute abdominal pain. She reported acute pain following coffee and a ham sandwich the afternoon prior to admission. She reported sudden onset of severe tight and labor like and pain in the epigastrium and right upper quadrant radiating around the side and through her back. She reported breaking out into a cold sweat and was very nauseated. She took Pepcid and Tylenol and after several hours the pain became tolerable enough that she was able to sleep. However in the morning the pain was constant, worse with movement, lying down, laughing, and located in the right upper quadrant. In the emergency department she was afebrile with stable vital signs aside from high blood pressure 162/101. Lab work showed normal white count without shift, T bili 3.0, AST 1185, ALT 11 15, alk-phos 169, and lipase 1749. Abdominal ultrasound showed cholelit
[2022-04-30 14:10] VITALS: BP 156/94; PULSE 70; RESP 18; TEMP 36.7; O2SAT 99
== END 2022-04-30 15:35 | disposition home or self-care (01) ==
LOC: ANHED 11:58 → ANH2MED 12:34
PROVIDERS: Physician Assistant; Admitting Provider Student in an Organized Health Care Education/Training Program; Emergency Provider Emergency Medicine; Visit Provider Nurse Practitioner Family
DX: K85.10 Biliary acute pancreatitis without necrosis or infection (principal); K80.10 Calculus of gallbladder with chronic cholecystitis without obstruction; R74.01 Elevation of levels of liver transaminase levels; R03.0 Elevated blood-pressure reading, without diagnosis of hypertension; K76.0 Fatty (change of) liver, not elsewhere classified; Z87.891 Personal history of nicotine dependence; Z20.822 Contact with and (suspected) exposure to COVID-19
CPT/HCPCS: 36415; 74018; 74177; 74183; 76376; 76705; 80053; 80074; 81001; 81003; 81025; 82248; 83690; 83735; 84478; 85025; 86140; 96361; 96365; 96366; 96367; 96375; 99285; A9577; C9803; G0378; G0379; J1885; J1956; J2405; J7030; Q9967; U0003; U0005